=== PATIENT | female | born 1980 | race Caucasian/White ===

== ENCOUNTER 2020-08-16 07:00 | Outpatient (RCR) | payer BC, SELFPAY | END 2020-09-01 15:22 | disposition other institution (70) | LOC: HO.PT 07:00 | PROVIDERS: PCP Family Medicine; Visit Provider Family Medicine | DX: M54.2 Cervicalgia (principal) | CPT/HCPCS: 97110; 97112; 97161 ==

== ENCOUNTER 2020-10-06 08:00 | Outpatient (RCR) | payer BC, SELFPAY | END 2021-03-05 10:40 | disposition home or self-care (01) | LOC: HO.PT 08:00 | PROVIDERS: PCP Family Medicine; Visit Provider Family Medicine | DX: M54.5 Low back pain (principal) | CPT/HCPCS: 97110; 97112; 97161 ==